=== PATIENT | male | born 1970 | race Caucasian/White ===

== ENCOUNTER 2017-04-01 08:21 | Emergency (ER) | payer BC | END 2017-04-01 10:00 | disposition home or self-care (01) | LOC: ER 08:21 | DX: L50.0 Allergic urticaria (principal); I10 Essential (primary) hypertension; K21.9 Gastro-esophageal reflux disease without esophagitis; F17.210 Nicotine dependence, cigarettes, uncomplicated; Z79.899 Other long term (current) drug therapy; Z98.84 Bariatric surgery status | CPT/HCPCS: 96372 ==